=== PATIENT | male | born 1955 | race Caucasian/White ===

== ENCOUNTER 2019-03-27 10:36 | Day surgery (SDC) | payer OTHER ==
[2019-03-27] MEDS ORDERED: LIDOCAINE 2% (SDV) 5 ML INJ (12:11)
[2019-03-27] MEDS ORDERED: PROPOFOL 40 ML (12:11)
[2019-03-27] MEDS ORDERED: LABETALOL HCL 20MG INJ IV (13:00)
[2019-03-27] MEDS ORDERED: hydrALAzine 20 MG INJ IV (13:00)
[2019-03-27] MEDS ORDERED: ONDANSETRON 4 MG INJ IV (13:00)
[2019-03-27] MEDS ORDERED: FENTAnyl 50 MCG/ML VIAL IV (13:00)
== END 2019-03-27 15:29 | disposition home or self-care (01) ==
LOC: GIL 10:36
DX: Z12.11 Encounter for screening for malignant neoplasm of colon (principal); D12.5 Benign neoplasm of sigmoid colon; K64.8 Other hemorrhoids; E11.9 Type 2 diabetes mellitus without complications; I12.9 Hypertensive chronic kidney disease with stage 1 through stage 4 chronic kidney disease, or unspecified chronic kidney disease; N18.9 Chronic kidney disease, unspecified; Z79.84 Long term (current) use of oral hypoglycemic drugs
CPT/HCPCS: 45380; 82962; 88305